=== PATIENT | female | born 1995 | race Caucasian/White ===

== ENCOUNTER → 2017-05-30 | Outpatient (CLI) | payer OTHER ==
[~2017-05-30] MED LIST: AMOXICILLIN500 M2 PO; BACTRIM 400 MG-1 TAB PO; BACTRIM DS 8001 TA1 PO; FLAGYL500 MG PO; MACROBID100 M1 PO; NAPROSYN500 MG PO; NORCO 5-325 TA1 EACH PO; NUVARING1 ICR VG; PERCOCET 325 MG1 TA2 PO; PHENERGAN W/DM120 ML PO; PRENATAL1 TA7 PO; PYRIDIUM200 MG PO; TRAMADOL HCL50 MG PO; TRIMOX,POLYMOX250 MG PO
== END | disposition home or self-care (01) ==
LOC: US 08:11
DX: R10.11 Right upper quadrant pain (principal)

== ENCOUNTER 2017-06-24 21:12 | Emergency (ER) | payer OTHER ==
[~2017-06-24] VITALS: Ht 162.5 cm; Wt 72.6 kg
[2017-06-24 21:20] VITALS: BP 111/65
[2017-06-24 21:40] LABS: BASO # 0.1 10*3/uL (0.0-0.1); BASO % 0.6 % (0.0-1.0); EOS # 0.2 10*3/uL (0.0-0.4); EOS % 1.9 % (1.0-4.0); HEMOGLOBIN 13.8 g/dl (12.0-16.0); LYMPH # 2.6 10*3/uL (1.3-4.4); LYMPH % 24.1 % (27.0-41.0); MEAN CELL VOLUME 88.4 fl (81.0-99.0); MEAN CORPUSCULAR HGB 29.1 pg (27.0-31.0); MEAN CORPUSCULAR HGB CONC 32.9 g/dl (33.0-37.0); MEAN PLATELET VOLUME 10.3 fl (9.6-12.3); MONO # 0.6 10*3/uL (0.1-1.0); MONO % 5.5 % (3.0-9.0); NEUT # 7.2 10*3/uL (2.3-7.9); NEUT % 67.6 % (47.0-73.0); PLATELET COUNT AUTOMATED 269 10*3/uL (130-400); RED BLOOD COUNT 4.75 10*6/uL (4.10-5.10); RED CELL DISTRI WIDTH 12.9 % (0-14.5); WHITE BLOOD COUNT 10.6 10*3/uL (4.8-10.8)
[2017-06-24 21:52] LABS: ACT PARTIAL THROMBO TIME 23.7 SECONDS (20.8-31.5)
[2017-06-24 21:56] LABS: ALBUMIN 3.6 gm/dl (3.1-4.5); ALKALINE PHOSPHATASE 70 U/L (45-117); BUN 11 mg/dl (7-24); CHLORIDE 107 mmol/L (98-107); CREATININE 0.77 mg/dL (0.55-1.02); MAGNESIUM 1.7 mg/dL (1.5-2.1); POTASSIUM 3.6 mmol/L (3.5-5.1); SGOT/AST 16 IU/L (3-35); SGPT/ALT 31 U/L (12-78); SODIUM 139 mmol/L (136-145); TOTAL PROTEIN 7.1 gm/dL (6.4-8.2)
[2017-06-24 21:57] LABS: TROPONIN I < 0.015 ng/ml (<0.045)
== END 2017-06-25 01:17 | disposition home or self-care (01) ==
LOC: ED 21:12
PROVIDERS: Student in an Organized Health Care Education/Training Program
DX: R07.89 Other chest pain (principal); R06.02 Shortness of breath; F17.200 Nicotine dependence, unspecified, uncomplicated; Z88.1 Allergy status to other antibiotic agents; Z88.8 Allergy status to other drugs, medicaments and biological substances

== ENCOUNTER 2017-11-25 01:02 | Emergency (ER) | payer OTHER ==
[~2017-11-25] VITALS: Ht 162.5 cm; Wt 72.6 kg
[2017-11-25 01:08] VITALS: BP 118/68
[2017-11-25] MEDS ORDERED: CYCLOBENZAPRINE5 M3 PO (01:57)
[2017-11-25] MEDS ORDERED: ANAPROX DS550 MG PO (01:57)
== END 2017-11-25 02:27 | disposition home or self-care (01) ==
LOC: ED 01:02
DX: S46.811A Strain of other muscles, fascia and tendons at shoulder and upper arm level, right arm, initial encounter (principal); Z88.0 Allergy status to penicillin; Z88.8 Allergy status to other drugs, medicaments and biological substances; X58.XXXA Exposure to other specified factors, initial encounter; Y93.89 Activity, other specified; Y92.89 Other specified places as the place of occurrence of the external cause; Y99.8 Other external cause status

== ENCOUNTER 2018-02-14 18:14 | Emergency (ER) | payer OTHER ==
[~2018-02-14] VITALS: Wt 72.6 kg
[~2018-02-14 18:14] MED LIST changes: +ANAPROX DS550 MG PO; +CYCLOBENZAPRINE5 M3 PO
[2018-02-14 18:19] VITALS: BP 113/68
[2018-02-14] MEDS ORDERED: ROBAXIN500 M1 PO (18:45)
[2018-02-14] MEDS ORDERED: ANAPROX DS550 MG PO (18:45)
== END 2018-02-14 18:56 | disposition home or self-care (01) ==
LOC: ED 18:14
DX: M60.812 Other myositis, left shoulder (principal); M54.6 Pain in thoracic spine; F17.200 Nicotine dependence, unspecified, uncomplicated; Z98.890 Other specified postprocedural states; Z88.1 Allergy status to other antibiotic agents; Z88.8 Allergy status to other drugs, medicaments and biological substances

== ENCOUNTER → 2018-11-30 | Outpatient (CLI) | payer OTHER ==
[~2018-11-30] MED LIST changes: +ROBAXIN500 M1 PO
== END | disposition home or self-care (01) ==
LOC: RAD 16:33
DX: M54.6 Pain in thoracic spine (principal)

== ENCOUNTER → 2019-09-13 | Outpatient (CLI) | payer OTHER | END | disposition home or self-care (01) | LOC: US 11:00 | DX: Z34.92 Encounter for supervision of normal pregnancy, unspecified, second trimester (principal); Z3A.19 19 weeks gestation of pregnancy ==

== ENCOUNTER → 2019-11-15 | Outpatient (CLI) | payer OTHER ==
[2019-11-15 17:25] LABS: BASO # 0.1 10*3/uL (0.0-0.1); BASO % 0.4 % (0.0-1.0); EOS # 0.3 10*3/uL (0.0-0.4); EOS % 2.2 % (1.0-4.0); HEMATOCRIT 35.8 % (37.0-47.0); HEMOGLOBIN 11.7 g/dl (12.0-16.0); LYMPH # 2.3 10*3/uL (1.3-4.4); LYMPH % 19.4 % (27.0-41.0); MEAN CELL VOLUME 88.4 fl (81.0-99.0); MEAN CORPUSCULAR HGB 28.9 pg (27.0-31.0); MEAN CORPUSCULAR HGB CONC 32.7 g/dl (33.0-37.0); MEAN PLATELET VOLUME 10.7 fl (9.6-12.3); MONO # 0.8 10*3/uL (0.1-1.0); MONO % 6.2 % (3.0-9.0); NEUT # 8.6 10*3/uL (2.3-7.9); NEUT % 71.2 % (47.0-73.0); PLATELET COUNT AUTOMATED 239 10*3/uL (130-400); RED BLOOD COUNT 4.05 10*6/uL (4.10-5.10); RED CELL DISTRI WIDTH 12.6 % (0-14.5)
== END | disposition home or self-care (01) ==
LOC: LAB 16:52
PROVIDERS: Nurse Practitioner Women's Health
DX: Z34.83 Encounter for supervision of other normal pregnancy, third trimester (principal); Z3A.28 28 weeks gestation of pregnancy

== ENCOUNTER → 2021-02-16 | Outpatient (CLI) | payer BC, OTHER | END | disposition home or self-care (01) | LOC: RAD 10:52 | PROVIDERS: ATTEND Nurse Practitioner Family | DX: M54.6 Pain in thoracic spine (principal); R25.2 Cramp and spasm; L50.9 Urticaria, unspecified; M25.50 Pain in unspecified joint; R63.5 Abnormal weight gain ==

== ENCOUNTER → 2022-04-15 | Outpatient (CLI) | payer OTHER ==
[~2022-04-15] MED LIST changes: +CYCLOBENZAPRINE10 MG PO
== END | disposition home or self-care (01) ==
LOC: RAD 15:47
PROVIDERS: ATTEND Nurse Practitioner Family
DX: M54.41 Lumbago with sciatica, right side (principal); M54.42 Lumbago with sciatica, left side; M79.672 Pain in left foot; M79.642 Pain in left hand

== ENCOUNTER 2022-04-17 14:23 | Emergency (ER) | payer OTHER ==
[~2022-04-17] VITALS: Ht 160 cm; Wt 95.3 kg
[~2022-04-17 14:23] MED LIST changes: -CYCLOBENZAPRINE10 MG PO
[2022-04-17 14:30] VITALS: BP 125/78
[2022-04-17] MEDS ORDERED: CYCLOBENZAPRINE10 MG PO (16:28)
[2022-04-17] MEDS ORDERED: NAPROSYN500 MG PO (16:28)
== END 2022-04-17 16:45 | disposition home or self-care (01) ==
LOC: ED 14:23
DX: M54.41 Lumbago with sciatica, right side (principal); M54.42 Lumbago with sciatica, left side; M54.12 Radiculopathy, cervical region; Z88.2 Allergy status to sulfonamides; Z88.1 Allergy status to other antibiotic agents

== ENCOUNTER 2022-08-10 20:41 | Emergency (ER) | payer OTHER ==
[~2022-08-10] VITALS: Ht 162.5 cm; Wt 77.1 kg
[~2022-08-10 20:41] MED LIST changes: +CYCLOBENZAPRINE10 MG PO
[2022-08-10 21:02] VITALS: BP 115/78
[2022-08-11] MEDS ORDERED: ORPHENADRINE C100 M1 PO (00:05)
[2022-08-11] MEDS ORDERED: PREDNISONE20 M1 PO (00:05)
== END 2022-08-11 00:23 | disposition home or self-care (01) ==
LOC: ED 20:41
DX: G58.8 Other specified mononeuropathies (principal); Z88.2 Allergy status to sulfonamides; Z79.2 Long term (current) use of antibiotics; Z98.890 Other specified postprocedural states

== ENCOUNTER → 2022-09-27 | Day surgery (SDC) | payer OTHER ==
[~2022-09-27] VITALS: Ht 162.5 cm; Wt 77.1 kg
[~2022-09-27] MED LIST changes: +BUSPIRONE10 MG PO; +CLARITIN10 MG PO; +CYMBALTA30 MG PO; +DOXYCYCLINE HY150 M2 PO; +ORPHENADRINE C100 M1 PO; +PREDNISONE20 M1 PO; +Percocet 325 MG1 TAB PO
[2022-09-27 07:04] VITALS: BP 116/67
[2022-09-27 08:37] VITALS: BP 91/32
[2022-09-27 09:07] VITALS: BP 101/57
[2022-09-27 09:22] VITALS: BP 95/38
[2022-09-27 09:37] VITALS: BP 104/56
== END | disposition home or self-care (01) ==
LOC: SDC 09-23 14:00
PROVIDERS: ATTEND Obstetrics & Gynecology
DX: Z30.2 Encounter for sterilization (principal); J45.909 Unspecified asthma, uncomplicated; F41.9 Anxiety disorder, unspecified; F17.210 Nicotine dependence, cigarettes, uncomplicated

== ENCOUNTER → 2024-01-10 | Outpatient (CLI) | payer OTHER ==
[~2024-01-10] MED LIST changes: +CEPHALEXIN500 M1 PO
[2024-01-10 10:11] LABS: BASO # 0.1 10*3/uL (0.0-0.1); BASO % 1.2 % (0.0-1.0); EOS # 0.3 10*3/uL (0.0-0.4); HEMATOCRIT 42.4 % (37.0-47.0); LYMPH # 2.9 10*3/uL (1.3-4.4); LYMPH % 38.5 % (27.0-41.0); MEAN CORPUSCULAR HGB 29.3 pg (27.0-31.0); MEAN CORPUSCULAR HGB CONC 33.3 g/dl (33.0-37.0); MEAN PLATELET VOLUME 9.7 fl (9.6-12.3); MONO # 0.6 10*3/uL (0.1-1.0); MONO % 7.9 % (3.0-9.0); NEUT # 3.6 10*3/uL (2.3-7.9); PLATELET COUNT AUTOMATED 388 10*3/uL (130-400); RED BLOOD COUNT 4.82 10*6/uL (4.10-5.10); RED CELL DISTRI WIDTH 12.8 % (0-14.5); WHITE BLOOD COUNT 7.5 10*3/uL (4.8-10.8)
[2024-01-10 10:53] LABS: VITAMIN D, 25-HYDROXY 23.4 ng/mL (30-100)
[2024-01-10 10:54] LABS: ALKALINE PHOSPHATASE 61 U/L (46-116); BUN 9 mg/dl (9-23); CHLORIDE 109 mmol/L (98-107); FREE T4 1.01 ng/dl (0.89-1.76); POTASSIUM 3.6 mmol/L (3.4-5.1); SGPT/ALT 17 U/L (5-49); TOTAL PROTEIN 7.2 gm/dL (6.0-8.0)
== END | disposition home or self-care (01) ==
LOC: LAB 09:27
PROVIDERS: ATTEND Social Worker Clinical
DX: Z51.81 Encounter for therapeutic drug level monitoring (principal); Z79.899 Other long term (current) drug therapy

== ENCOUNTER → 2024-01-20 | Outpatient (CLI) | payer OTHER ==
[2024-01-20 09:29] LABS: BASO # 0.1 10*3/uL (0.0-0.1); EOS # 0.4 10*3/uL (0.0-0.4); EOS % 4.4 % (1.0-4.0); HEMATOCRIT 46.7 % (37.0-47.0); LYMPH # 2.5 10*3/uL (1.3-4.4); LYMPH % 30.9 % (27.0-41.0); MEAN CELL VOLUME 90.7 fl (81.0-99.0); MEAN CORPUSCULAR HGB 29.3 pg (27.0-31.0); MEAN CORPUSCULAR HGB CONC 32.3 g/dl (33.0-37.0); MEAN PLATELET VOLUME 9.2 fl (9.6-12.3); MONO # 0.6 10*3/uL (0.1-1.0); MONO % 7.8 % (3.0-9.0); NEUT # 4.6 10*3/uL (2.3-7.9); NEUT % 55.7 % (47.0-73.0); PLATELET COUNT AUTOMATED 380 10*3/uL (130-400); RED BLOOD COUNT 5.15 10*6/uL (4.10-5.10); RED CELL DISTRI WIDTH 12.9 % (0-14.5); WHITE BLOOD COUNT 8.2 10*3/uL (4.8-10.8)
[2024-01-20 10:24] LABS: ALKALINE PHOSPHATASE 63 U/L (46-116); BUN 8 mg/dl (9-23); CHLORIDE 105 mmol/L (98-107); POTASSIUM 3.7 mmol/L (3.4-5.1); SGPT/ALT 15 U/L (5-49); TOTAL PROTEIN 7.6 gm/dL (6.0-8.0)
[2024-01-24 20:07] LABS: TB1 Ag VALUE 0.07 IU/mL (.)
== END | disposition home or self-care (01) ==
LOC: LAB 08:55
PROVIDERS: ATTEND Nurse Practitioner Family
DX: L73.2 Hidradenitis suppurativa (principal)

== ENCOUNTER → 2024-12-05 | Outpatient (CLI) | payer OTHER | END | disposition home or self-care (01) | LOC: ORTHO 02:16 | PROVIDERS: ATTEND Orthopaedic Surgery | DX: M79.89 Other specified soft tissue disorders (principal); M25.532 Pain in left wrist ==

== ENCOUNTER → 2024-12-25 | Day surgery (SDC) | payer OTHER ==
[2024-12-21 11:20] LABS: BUN 9 mg/dl (9-23); CHLORIDE 105 mmol/L (98-107); POTASSIUM 3.9 mmol/L (3.4-5.1)
[~2024-12-25] VITALS: Ht 165.1 cm; Wt 79.4 kg
[~2024-12-25] MED LIST changes: +ADDERALL 20 MG20 MG PO; +ADDERALL 30 MG30 MG PO; +BUPivacaine 0.5% 10 ML VIAL ONE; +CLONIDINE HCL0.1 MG PO; +LYRICA200 M1 PO; +Lactated Ringer's Solution 1,000 ML IV ONE; +Lidocaine Hydrochloride 30 ML VIAL ONE; +Lidocaine Hydrochloride 5 ML VIAL IV ONE; +Midazolam Hydrochloride 2 MG/2 ML VIAL IV ONE; +NEURONTIN300 MG PO; +PROPOFOL 200 MG/20 ML VIAL IV ONE; +TRAZODONE100 MG PO; +ceFAZolin sodium/sodium chlor 10 ML IV ONE; +ceFAZolin sodium/sodium chlor 10 ML IV SCH
[2024-12-25 07:02] VITALS: BP 112/68
[2024-12-25 08:25] VITALS: BP 116/59
[2024-12-25 08:40] VITALS: BP 104/68
[2024-12-25 08:55] VITALS: BP 126/79
[2024-12-25 09:04] VITALS: BP 132/87
== END | disposition home or self-care (01) ==
LOC: SDC 12-21 09:30
PROVIDERS: ATTEND Orthopaedic Surgery
DX: M67.432 Ganglion, left wrist (principal); G43.909 Migraine, unspecified, not intractable, without status migrainosus; J45.909 Unspecified asthma, uncomplicated; F41.9 Anxiety disorder, unspecified; F32.A Depression, unspecified; F12.90 Cannabis use, unspecified, uncomplicated; Z98.51 Tubal ligation status; Z86.16 Personal history of COVID-19; Z87.440 Personal history of urinary (tract) infections; Z98.890 Other specified postprocedural states; Z79.899 Other long term (current) drug therapy; Z88.2 Allergy status to sulfonamides; Z88.8 Allergy status to other drugs, medicaments and biological substances

== ENCOUNTER 2025-08-03 23:18 | Emergency (ER) | payer OTHER ==
[~2025-08-03] VITALS: Ht 162.5 cm; Wt 77.1 kg
[~2025-08-03 23:18] MED LIST changes: -BUPivacaine 0.5% 10 ML VIAL ONE; -Lactated Ringer's Solution 1,000 ML IV ONE; -Lidocaine Hydrochloride 30 ML VIAL ONE; -Lidocaine Hydrochloride 5 ML VIAL IV ONE; -Midazolam Hydrochloride 2 MG/2 ML VIAL IV ONE; -PROPOFOL 200 MG/20 ML VIAL IV ONE; -ceFAZolin sodium/sodium chlor 10 ML IV ONE; -ceFAZolin sodium/sodium chlor 10 ML IV SCH
[2025-08-03 23:30] VITALS: BP 117/81
[2025-08-04 00:27] LABS: BILIRUBIN Negative (Negative); BLOOD Negative (Negative); CLARITY Clear (Clear); COLOR Yellow (Yellow); KETONE Trace (Negative); LEUKO ESTERASE Negative (Negative); NITRITE Negative (Negative); PH 6.5 (4.5-8.0); SPECIFIC GRAVITY 1.025 (1.001-1.030); UROBILINOGEN 1.0 E.U./dl (0.0-1.0)
[2025-08-04 00:55] LABS: BACTERIA 1+; EPITHELIAL CELLS 21-30
[2025-08-04] MEDS ORDERED: MIRALAX POWDER17 G1 PO (01:01)
== END 2025-08-04 01:12 | disposition home or self-care (01) ==
LOC: ED 23:18
PROVIDERS: Emergency Medicine
DX: K59.00 Constipation, unspecified (principal); F41.9 Anxiety disorder, unspecified; J45.909 Unspecified asthma, uncomplicated; Z98.890 Other specified postprocedural states; Z88.1 Allergy status to other antibiotic agents